=== PATIENT | male | born 1975 | race Caucasian/White ===

== ENCOUNTER 2017-08-31 09:33 | Emergency (ER) | payer MEDICAID ==
[~2017-08-31] VITALS: Ht 180.3 cm; Wt 88.5 kg
[~2017-08-31 09:33] MED LIST: PERCOCET 5/3251 EACH PO; PHENERGAN 25MG.25 M1 PO
--- OUTSIDE RECORDS SUMMARY | 2017-08-31 09:48 | External Medical Summary Rpt | CCD ---
Author Author SEBASTIÁN Address Unknown Phone [email or web address] Purpose Continuity of Care Document - through 2016
--- OUTSIDE RECORDS SUMMARY | 2017-08-31 09:48 | External Medical Summary Rpt ---
Author Author YOAN Chaudhary, YOAN Chaudhary Organization [employer] Address Unknown Phone Unavailable
--- OUTSIDE RECORDS SUMMARY | 2017-08-31 09:48 | External Medical Summary Rpt | CCD ---
Demographics Preferred Language Indian Marital Status Unknown Sikh Affiliation Unknown Race Unknown Ethnic Group Unknown Author Author , SEBASTIÁN MILTON Address Unknown Phone Immunization No patient found.
--- OUTSIDE RECORDS SUMMARY | 2017-08-31 09:48 | External Medical Summary Rpt | CCD ---
Author Author SEBASTIÁN Address Unknown Phone Purpose Continuity of Care Document - through 2016
--- OUTSIDE RECORDS SUMMARY | 2017-08-31 09:48 | External Medical Summary Rpt | CCD ---
Demographics Preferred Language Sammarinese Marital Status Unknown Islam Affiliation Unknown Race Unknown Ethnic Group Unknown Author Author , SEBASTIÁN MILTON Address Unknown Phone Immunization No patient found.
--- OUTSIDE RECORDS SUMMARY | 2017-08-31 09:48 | External Medical Summary Rpt | CCD ---
Author Author SEBASTIÁN Address Unknown Phone [email or web address] Purpose Continuity of Care Document - through 2016
--- OUTSIDE RECORDS SUMMARY | 2017-08-31 09:48 | External Medical Summary Rpt | CCD ---
Author Author SEBASTIÁN Address Unknown Phone [email or web address] Purpose Continuity of Care Document - through 2016
--- NOTE | 2017-08-31 10:00 | Urgent Treatment Center Report ---
History of Present Issue Date/Time Seen by Provider 08/31/17 0958 Visit Reason Pt arrived:Walked Presenting Problem:PT C/O SORE THROAT AND YAN Location if Accident: Onset of symptoms date/time:/ or onset unknown for:MEDICAL HX UNKNOWN Have you (or family members/close friends) recently traveled outside the [place]? N If Yes, where/when: Have you had exposure to infectious disease within the past month? TB? Other? Specify: Patient state that he has had sore throat, headache and body aches for several days that has not improved. State that his throat is raw and hurts when he swallows. State that he feels achy all over but has not been running a fever that he knows of. State that his children have been sick with the same symptoms ALLERGIES Coded Allergies: No Known Allergies (08/31/17) Home Medications Active Scripts Promethazine Hydrochloride (Phenergan 25MG Tab) 25 MG PO Q6H PRN #12 Prov: 07/01/10 History Medical History General CAD? No Angina: No CT: No Hypertension? No Hyperlipidemia? No CHF? No DVT? No PE? No COPD? No Asthma? No Anemia? No GERD? No Gastric ulcers? No GI Bleed? No Hernia? No Thyroid Problems? No Hypothyroidism? No CVA? No Seizures? No Diabetes? No Renal Insuffiency? No UTI? No Stones? No BPH? No GB Disease: No Nephritic Syndrome? No Asplenia? No Hepatitis? No Sickle Cell Disease? No Arthritis? No Migraines? No Cataracts? No Glaucoma? No MRSA? No HIV? No TB? No Anxiety? No Depression? No Cancer? No More? No Immunization HX DT/Tetanus UNKNOWN Flu LAST YEAR Pneumonia 1-4 YRS Surgical Hx Previous Surgery?Y VISECTOMY Family History Family HX Diabetes Yes CAD Yes Hypertension Yes Hyperlipidemia Yes Cancer Yes TB No Social History Smoking Hx Smoker: Never Smoker Tobacco: No Packs/day 1 1/2 - 2 Packs Alcohol Alcohol: No Review of Systems All Other Systems Reviewed and Negative ENT throat pain, throat swelling. Psychiatric/Neurological headache Physical Exam Vital Signs Vital Signs Date Time Temp Pulse Resp B/P Pulse O2 O2 Flow FiO2 Ox Delivery Rate 08/31 0954 98.5 69 18 132/72 96 General Appearance normal appearance, WD/WN, no apparent distress Ear, Nose, Throat tonsillar swelling, THroat red, irritated drainage noted in back of throat Respiratory Status Yes: trachea midline, chest symmetrical, non tender chest. No: respiratory distress. Lung Sounds bilateral: normal breath sounds, lungs clear. Cardiovascular normal exam, regular rate/rhythm, no peripheral edema Neurologic alert, normal exam, oriented x 3 Medical Decision Making LABS/Meds/Orders Pt receiving controlled substance in ED? No Results/Orders Orders Procedure Date/time Status [facility] STREP SCREEN 08/31 0957 Active Departure Departure Time of Disposition 1028 Disposition DC Home or Self Care(routine) Clinical Impression Primary Impression: Upper respiratory infection Qualifiers: URI type: acute tonsillitis Pharyngitis/tonsillitis etiology: unspecified etiology Qualified Code: J03.90 - Acute tonsillitis, unspecified Condition STABLE Patient Instructions DI for Headache, Sinus Headache, Sore Throat Additional Instructions * Monitor Temp. Tylenol and/or Ibuprofen as needed. ER if fever is no less than 101 despite alternating Tylenol and Ibuprofen * Encourage fluids, water, Gatorade, powerade, pedialyte if /toddler/or child * Warm salt water gargles for throat irritation *Warm fluids *Sore throat lozenges *Sleep elevated *humidifier or vaporizer Lots of rest Increase fluids, water, Gatorade, powerade *Flonase 2 sprays each nostril daily but may take 2-3 days to notice improvement with it *Bromfed may cause drowsiness. Know how it effect you or your child. Before driving, caring for small children or sending your child to school *Your throat swab was sent to lab for culture. Those results area typically sent to your primary care physician. Be sure to follow up in 2-3 days if no improvement so they can review those results and treat if necessary If you dont have primary care I recommend you get one, but in the mean time you will have to return to a walk in clinic Follow up IMMEDIATELY for new or worsening of symptoms OR no noticeable improvement over the next 48-72 hours. 911 immediately for any life threatening symptoms such as chest pain or difficulty breathing Discharge Counseling Counseled pt/family regarding diagnosis, test results, medications/RX, home care, follow up needs Prescriptions Current Visit Scripts D-METHORPHAN HB/P-EPD HCL/BPM (Bromfed Dm Cough Syrup) 10 ML PO Q4HP PRN cough #150 SYR Azithromycin (Zithromycin (Z-CRUZ) 250MG Tab) 250 MG PO DAILY #6 TAB TAKE TWO (2) TABLETS ON DAY 1, THEN ONE (1) TABLET DAY #2 THRU #5 Fluticasone Propionate (Flonase 50 Mcg Nasal [place]) 2 SPRAY NA DAILY #1 BOT Methylprednisolone (Medrol Dose Cruz) 4 MG PO UD #1 CRUZ TAKE DIRECTED ON PACKAGING at 0974
[2017-08-31] MEDS ORDERED: ZITHROMAX Z PA250 MG PO (10:29)
[2017-08-31] MEDS ORDERED: FLONASE 50 MCG16 GM (10:29)
[2017-08-31] MEDS ORDERED: BROMFED DM COU118 ML PO (10:29)
[2017-08-31] MEDS ORDERED: MEDROL 4MG. DOSE4 MG PO (10:29)
[2017-08-31 10:44] VITALS: BP 132/72
== END 2017-08-31 10:44 | disposition home or self-care (01) ==
LOC: UTC 09:33
DX: J03.90 Acute tonsillitis, unspecified (principal)